=== PATIENT | female | born 1970 | race African-American/Black ===

== ENCOUNTER 2021-01-25 20:04 | Emergency (ER) | payer MEDICAID ==
[~2021-01-25] VITALS: Ht 162.6 cm; Wt 64.7 kg
[2021-01-25 20:39] LABS: COLOR URINE ORANGE (YELLOW); KETONES URINE TRACE (NEGATIVE); LEUKOCYTE ESTERASE URINE 2+ (NEGATIVE); NITRITE URINE POSITIVE (NEGATIVE); OCCULT BLOOD URINE NEGATIVE (NEGATIVE); PH URINE 6.5 (4.5-8.0); PROTEIN URINE TRACE (NEGATIVE); SPECIFIC GRAVITY URINE 1.019 (1.005-1.030)
[2021-01-25 20:43] LABS: CLARITY URINE HAZY (CLEAR)
[2021-01-25] MEDS ORDERED: CEPH500T MT (21:29)
[2021-01-25] MEDS ORDERED: IBUP-2028 MT (21:30)
[2021-01-25 21:57] VITALS: BP 128/89
== END 2021-01-25 22:12 | disposition home or self-care (01) ==
LOC: ER 20:04
DX: N39.0 Urinary tract infection, site not specified (principal)
CPT/HCPCS: 81003; 99283